=== PATIENT | female | born 1995 | race Caucasian/White ===

== ENCOUNTER 2019-05-11 01:58 | Inpatient (IN) ==
[2019-05-11 02:21] LABS: URINE SOURCE VOIDED
[2019-05-11 02:25] LABS: BILIRUBIN URINE NEGATIVE (NEGATIVE); BLOOD URINE SMALL (NEGATIVE); COLOR YELLOW; GLUCOSE URINE NEGATIVE (NEGATIVE); KETONE URINE TRACE mg/dL (NEGATIVE); LEUKOCYTES URINE NEGATIVE (NEGATIVE); NITRITE URINE NEGATIVE (NEGATIVE); PROTEIN URINE NEGATIVE (NEGATIVE); SP GRAVITY URINE 1.007; TURBIDITY URINE CLEAR (CLEAR); UROBILINOGEN URINE NORMAL (NORMAL)
[2019-05-11 02:34] LABS: UR AMPHETAMINES QUAL NONE DETECTED (NONE DETECT); UR BARBITUATES QUAL NONE DETECTED (NONE DETECT); UR BENZODIAZEPIN QUAL NONE DETECTED (NONE DETECT); UR CANNABINOIDS QUAL NONE DETECTED (NONE DETECT); UR COCAINE QUAL NONE DETECTED (NONE DETECT); UR METHADONE QUAL NONE DETECTED (NONE DETECT); UR OPIATES QUAL NONE DETECTED (NONE DETECT); UR OXYCODONE QUAL NONE DETECTED (NONE DETECT); UR PCP QUAL NONE DETECTED (NONE DETECT)
[2019-05-11] MEDS ORDERED: REGLAN PO PRN (03:05)
[2019-05-11] MEDS ORDERED: PEPCID PO PRN ×2 (03:05)
[2019-05-11] MEDS ORDERED: TYLENOL PO PRN (03:05)
[2019-05-11] MEDS ORDERED: KEFZOL 2 GM/D5W 2 GM/50 ML IVPB IV PRN (03:05)
[2019-05-11] MEDS ORDERED: ZOFRAN IV PRN (03:05)
[2019-05-11] MEDS ORDERED: PEPCID IV PRN (03:05)
[2019-05-11] MEDS ORDERED: STADOL IV PRN (03:05)
[2019-05-11] MEDS ORDERED: PITOCIN 30 UNITS/NS 30 UNIT/500 ML IV.SOLN IV SCH ×2 (03:15→12:00)
[2019-05-11] MEDS ORDERED: SODIUM CHLORIDE 0.9% INJ SCH (03:15)
[2019-05-11] MEDS ORDERED: MINERAL OIL TOP PRN (03:39)
[2019-05-11] MEDS ORDERED: XYLOCAINE-MPF 1% INJ PRN ×2 (03:39→11:52)
[2019-05-11 03:41] LABS: BASO# 0.02 X1000 (0.0-0.2); BASO% 0.2 % (0.0-0.8); EOS# 0.19 X1000 (0.0-0.7); EOS% 1.9 % (0.0-10.0); HEMATOCRIT 37.2 % (37.0-47.0); HEMOGLOBIN 12.8 g/dL (12.0-16.0); IMM GRAN# 0.02 X1000 (0.0-0.04); IMM GRAN% 0.2 % (0.0-0.5); LYMPH% 27.5 % (20.5-51.1); MCH 32.8 PG (27-31); MCHC 34.4 g/dL (33-37); MCV 95.4 FL (81-99); MONO# 0.82 X1000 (0.11-0.59); MONO% 8.4 % (1.7-9.3); MPV 11.5 FL (7.4-10.4); NEUT# 6.07 X1000 (1.4-6.5); NEUT% 61.8 % (42.2-75.2); PLT 228 X1000 (130-400); RDW 12.4 % (11.5-14.5); WBC 9.82 X1000 (4.8-10.8)
[2019-05-11] MEDS: LR 1,000 ML IV SCH ×3 (03:47→09:20)
[2019-05-11] MEDS ORDERED: NAROPIN 0.2% INJ ONE (04:15)
[2019-05-11 04:28] LABS: AGAP 15; ALB/GLOB RATIO 1.4; ALBUMIN 3.5 g/dL (3.5-5.0); ALKALINE PHOSPHATASE 108 U/L (32-104); BUN 6 mg/dL (8-22); CALCIUM 9.1 mg/dL (8.8-10.2); CHLORIDE 106 mmol/L (98-107); COSMO 275; CREATININE 0.4 mg/dL (0.5-0.9); ESTIMATED GFR > 60; GLUCOSE 103 mg/dL (70-104); GOT 14 U/L (10-30); GPT 7 U/L (10-36); POTASSIUM 4.2 mmol/L (3.5-5.1); SODIUM 139 mmol/L (136-145); TCO2 18 mmol/L (25-35); TOTAL BILIRUBIN 0.15 mg/dL (0.20-1.00)
[2019-05-11] MEDS ORDERED: FENTANYL-BUPIV-NS 500 MCG-0.125% 250 ML EPIDURAL SCH (05:00)
--- NOTE | 2019-05-11 08:01 | OB/GYN PROGRESS NOTE ---
- Subjective Labor note Assumed care Labor 6cm srom no augmentation epidural in fht cat 1 efw 34oo g anticpate OB Physical Exam Vital Signs - 8 hr 05/11/19 01:50 05/11/19 02:03 05/11/19 04:11 Temperature 97.9 F 97.9 F 98.1 F Pulse Rate 119 H 114 H 94 H Respiratory Rate 19 20 18 Blood Pressure 142/86 142/92 135/79 O2 Sat by Pulse Oximetry 100 95 97 05/11/19 07:15 Temperature 98.3 F Pulse Rate 121 H Respiratory Rate 20 Blood Pressure 111/63 O2 Sat by Pulse Oximetry 97 - CONSTITUTIONAL General Appearance: appears well Active Medications Generic Name Dose Route Start Last Admin Trade Name Freq PRN Reason Stop Dose Admin Acetaminophen 650 mg 05/11/19 03:05 Tylenol PO Q4-6H PRN PRN Headache Butorphanol Tartrate 2 mg 05/11/19 03:05 Stadol IV PRN PRN Pain Famotidine 20 mg 05/11/19 03:05 Pepcid PO ONCE PRN PRN section Famotidine 40 mg 05/11/19 03:05 Pepcid PO Q12H PRN PRN GI upset or indigestion Famotidine 20 mg 05/11/19 03:05 Pepcid IV Q12H PRN PRN GI upset or indigestion Cefazolin Sodium/Dextrose 2 gm in 50 mls @ 50 mls/hr 05/11/19 03:05 Kefzol 2 Gm/D5w IV ONCE PRN PRN section Lactated Ringer's 1,000 mls @ 0 mls/hr 05/11/19 03:15 05/11/19 04:36 Lr IV 125 mls/hr .Q0M TON Administration As Directed Oxytocin/Sodium Chloride 30 unit in 500 mls @ 0 mls/hr 05/11/19 03:15 Pitocin 30 Units/Ns IV .Q0M TON As Directed Fentanyl/Bupivacaine/Sodium Chlor 250 mls @ 0 mls/hr 05/11/19 05:00 [id number]-[id number]-[id number] 500 Mcg-0.125% EPIDURAL DIRECTED TON As Directed Lidocaine HCl 30 ml 05/11/19 03:39 Xylocaine-Mpf 1% INJ ONCE PRN PRN delivery Metoclopramide HCl 10 mg 05/11/19 03:05 Reglan PO ONCE PRN PRN section Mineral Oil 30 ml 05/11/19 03:39 Mineral Oil TOP ONCE PRN PRN delivery Ondansetron HCl 4 mg 05/11/19 03:05 Zofran IV PRN PRN Nausea Sodium Chloride 5 - 10 ml 05/11/19 03:15 Sodium Chloride 0.9% INJ DIRECTED TON Laboratory Results - last 24 hr 05/11/19 05/11/19 05/11/19 02:00 02:00 02:00 WBC RBC Hgb Hct MCV MCH MCHC RDW Std Deviation Plt Count MPV Immature Gran % (Auto) Neut % (Auto) Lymph % (Auto) [place] % (Auto) Eos % (Auto) Baso % (Auto) Immature Gran # (Auto) Neut # (Auto) Lymph # (Auto) [place] # (Auto) Eos # (Auto) Baso # (Auto) Sodium Potassium Chloride Carbon Dioxide Anion Gap BUN Creatinine Estimated GFR/1.73 m2 BUN/Creatinine Ratio Glucose Calculated Osmolality Calcium Total Bilirubin AST ALT Alkaline Phosphatase Total Protein Albumin Globulin Albumin/Globulin Ratio Urine Source VOIDED Urine Color YELLOW Urine Turbidity CLEAR Urine pH 7.0 Ur Specific [place] 1.007 Urine Protein NEGATIVE Ur Glucose (Stick) NEGATIVE Ur Ketones (Stick) TRACE A Urine Blood SMALL A Urine Nitrite NEGATIVE Urine Bilirubin NEGATIVE Urobilinogen Dipstick NORMAL Urine Leukocytes NEGATIVE Membranes Rupture POSITIVE Urine Opiates Screen NONE DETECTED Ur Oxycodone Screen NONE DETECTED Ur Methadone, Qual NONE DETECTED Ur Barbiturates Screen NONE DETECTED Ur Phencyclidine Scrn NONE DETECTED Ur Amphetamines Screen NONE DETECTED U Benzodiazepines Scrn NONE DETECTED Urine Cocaine Screen NONE DETECTED U Cannabinoids Screen NONE DETECTED RPR 05/11/19 05/11/19 05/11/19 03:17 03:17 03:17 WBC 9.82 RBC 3.90 L Hgb 12.8 Hct 37.2 MCV 95.4 MCH 32.8 H MCHC 34.4 RDW Std Deviation 12.4 Plt Count 228 MPV 11.5 H Immature Gran % (Auto) 0.2 Neut % (Auto) 61.8 Lymph % (Auto) 27.5 [place] % (Auto) 8.4 Eos % (Auto) 1.9 Baso % (Auto) 0.2 Immature Gran # (Auto) 0.02 Neut # (Auto) 6.07 Lymph # (Auto) 2.70 [place] # (Auto) 0.82 H Eos # (Auto) 0.19 Baso # (Auto) 0.02 Sodium 139 Potassium 4.2 Chloride 106 Carbon Dioxide 18 L Anion Gap 15 BUN 6 L Creatinine 0.4 L Estimated GFR/1.73 m2 > 60 BUN/Creatinine Ratio 15 Glucose 103 Calculated Osmolality 275 Calcium 9.1 Total Bilirubin 0.15 L AST 14 ALT 7 L Alkaline Phosphatase 108 H Total Protein 6.0 L Albumin 3.5 Globulin 2.5 Albumin/Globulin Ratio 1.4 Urine Source Urine Color Urine Turbidity Urine pH Ur Specific [place] Urine Protein Ur Glucose (Stick) Ur Ketones (Stick) Urine Blood Urine Nitrite Urine Bilirubin Urobilinogen Dipstick Urine Leukocytes Membranes Rupture Urine Opiates Screen Ur Oxycodone Screen Ur Methadone, Qual Ur Barbiturates Screen Ur Phencyclidine Scrn Ur Amphetamines Screen U Benzodiazepines Scrn Urine Cocaine Screen U Cannabinoids Screen RPR NON-REACTIVE
[2019-05-11] MEDS ORDERED: NAROPIN 0.5% INJ ONE (08:43)
--- NOTE | 2019-05-11 10:19 | HISTORY AND PHYSICAL ---
HISTORY OF PRESENT ILLNESS: The patient is a 23-year-old white female, G 3, P 1, A 1 at 38 weeks gestation, presents with complaints of leaking of fluid that began at 12:45 a.m. at home. The patient's care is significant for gestational diabetes treated with metformin 500 mg b.i.d. Blood sugars have been well controlled with this regimen. Patient also has hypothyroidism and has been treated with Synthroid 125 mcg half a pill daily. A group B strep culture was obtained and this was negative. PAST MEDICAL HISTORY: Gestational diabetes as mentioned above, which was not present in her first . Hypothyroidism treated with Synthroid. PAST SURGICAL HISTORY: None. PAST OB HISTORY: G 3, P 1, A 1. Spontaneous vaginal delivery. Her first child was 7 pounds 6 ounces and she also had a spontaneous AB. 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 REVIEW OF SYSTEMS: She had exercise-induced asthma, but has not had any episode since high school. FAMILY HISTORY: Unknown due to adoptive status. SOCIAL HISTORY: Tobacco use: None. Alcohol use: None. MEDICATIONS: vitamins, metformin 500 mg p.o. b.i.d., and Synthroid 125 mcg half a pill daily. ALLERGIES: No known drug allergies. PHYSICAL EXAMINATION: VITAL SIGNS: Height 5 feet 1 inch, weight 169 pounds, temperature 97.9 degrees, blood pressure 142/92, pulse of 114, respirations 20. heart rate in the 140s with [id number]-[id number] variability. HEENT: Pupils equal, round, reactive to light and accommodation. Extraocular movements intact. Oropharynx clear. NECK: Supple. No thyromegaly. LUNGS: Clear to auscultation. HEART: Regular rate and rhythm. ABDOMEN: Gravid, nontender. Cervix was dilated 6 cm, 90% effaced, -1 station, and she did have positive rupture of membrane on lab evaluation. EXTREMITIES: Mild lower extremity edema with motor 5/5 and DTRs 2+ bilaterally of lower extremities. LABS: Blood sugar was obtained at the time of admission and was noted to be 103. CBC upon admission: White count was 9.8, hemoglobin 12.8, hematocrit 37.2, platelet count 228,000. ASSESSMENT AND PLAN: Intrauterine 38 weeks gestation with a spontaneous rupture of membranes. Patient in active labor and has received epidural. Anticipate vaginal delivery. cc: Louie Cook III, MD
[2019-05-11] MEDS ORDERED: PITOCIN 20 UNITS/NS 20 UNITS/1,000 ML IV.SOLN IV SCH (11:45)
[2019-05-11] MEDS ORDERED: PITOCIN 20 UNITS/NS 20 UNITS/1,000 ML IV.SOLN ONE (11:46)
[2019-05-11] MEDS ORDERED: PITOCIN IM PRN (11:52)
[2019-05-11] MEDS ORDERED: ATARAX PO PRN (11:52)
[2019-05-11] MEDS ORDERED: BOOSTRIX VACCINE IM ONE (11:52)
[2019-05-11] MEDS ORDERED: BENADRYL PO PRN (11:52)
[2019-05-11] MEDS ORDERED: AMBIEN PO PRN (11:52)
[2019-05-11] MEDS ORDERED: BENADRYL IV PRN (11:52)
[2019-05-11] MEDS ORDERED: PERI MEDS (DERMOPLAST/NUPERCAINAL/TUCKS) MISC PRN (11:52)
[2019-05-11] MEDS ORDERED: HYDROXYZINE IM PRN (11:52)
[2019-05-11] MEDS ORDERED: M-M-R II VACCINE SUBQ ONE (11:52)
[2019-05-11] MEDS ORDERED: MOTRIN PO PRN (11:52)
[2019-05-11] MEDS ORDERED: CYTOTEC PO PRN (11:52)
[2019-05-11] MEDS ORDERED: MINERAL OIL PO PRN (11:52)
--- NOTE | 2019-05-11 18:17 | OPERATIVE NOTE ---
PROCEDURE DATE: 05/11/2019 Normal spontaneous vaginal delivery done on this 23-year-old 2 para 1 now 2 who presented in active phase labor. Underwent normal labor with epidural with anesthesia. She progressed normally through 1st and 2nd stage of labor. Delivered over intact perineum a live-born female infant. was handed to the maternal abdomen. Cord was clamped x2 and cut. The placenta delivers intact with 3-vessel cord, clear. Perineum was inspected and found to be hemostatic and intact. Please see the chart for weight and Apgars. cc: Louie Cook III, MD
[2019-05-11] MEDS: PERICOLACE PO SCH (20:54)
[2019-05-12 05:07] LABS: HEMATOCRIT 33.1 % (37.0-47.0); HEMOGLOBIN 11.2 g/dL (12.0-16.0); MCH 32.5 PG (27-31); MCHC 33.8 g/dL (33-37); MCV 95.9 FL (81-99); MPV 11.3 FL (7.4-10.4); RBC 3.45 XMIL (4.2-5.4); RDW 12.3 % (11.5-14.5); WBC 10.77 X1000 (4.8-10.8)
[2019-05-12] MEDS: SYNTHROID PO SCH (07:30)
--- NOTE | 2019-05-12 07:45 | OB/GYN PROGRESS NOTE ---
- Subjective 23 yo PPD#1 s/p at 38 weeks with A2-GDM, hypothyroidism Patient seen and examined. Her pain is controlled. She notes normal lochia. She is ambulating and voiding without difficulty. She is passing flatus. She is tolerating a regular diet and denies nausea/vomiting. She is . OB Physical Exam Vital Signs - 8 hr 05/12/19 00:00 05/12/19 04:00 05/12/19 07:31 Temperature 97.4 F L 97.0 F L 96.7 F L Pulse Rate 98 H 91 H 91 H Respiratory Rate 18 18 16 Blood Pressure 127/79 122/84 129/82 O2 Sat by Pulse Oximetry 95 95 96 - CONSTITUTIONAL General Appearance: appears well, alert, no apparent distress - EYES Eyes: PERRL/EOMI - HEAD, EARS, NOSE, MOUTH & THROAT HENMT: normocephalic/atraumatic - RESPIRATORY Respiratory: lungs clear, normal breath sounds, no respiratory distress - CARDIOVASCULAR Cardiovascular: regular rate, rhythm, no murmur - GASTROINTESTINAL (ABDOMEN) Abdominal Exam: normal bowel sounds, soft, other (ATTP, fundus firm/below umbilicus) - MUSCULOSKELETAL Extremity: normal range of motion, non-tender, no calf tenderness - NEUROLOGIC Neurologic: grossly normal - PSYCHIATRIC Psych/Mental Status: normal mood/affect Active Medications Generic Name Dose Route Start Last Admin Trade Name Freq PRN Reason Stop Dose Admin Acetaminophen 650 mg 05/11/19 03:05 Tylenol PO Q4-6H PRN PRN Headache Benzocaine 1 each 05/11/19 11:52 [place] Meds (Dermoplast/Nupercainal/Tucks) MISC 3-4XDAY PRN PRN episiotomy/hemorrhoids Butorphanol Tartrate 2 mg 05/11/19 03:05 Stadol IV PRN PRN Pain Diphenhydramine HCl 25 mg 05/11/19 11:52 Benadryl PO Q4H PRN PRN Itching Famotidine 20 mg 05/11/19 03:05 Pepcid PO ONCE PRN PRN section Famotidine 40 mg 05/11/19 03:05 Pepcid PO Q12H PRN PRN GI upset or indigestion Hydroxyzine HCl 50 mg 05/11/19 11:52 Atarax PO Q3-4H PRN PRN Nausea Hydroxyzine HCl 50 mg 05/11/19 11:52 Hydroxyzine IM Q3-4H PRN PRN Nausea Fentanyl/Bupivacaine/Sodium Chlor 250 mls @ 0 mls/hr 05/11/19 05:00 05/11/19 05:00 Qxumzinl-Ruxtv-Jc 500 Mcg-0.125% EPIDURAL 14 mls/hr DIRECTED TON Administration As Directed Ibuprofen 800 mg 05/11/19 11:52 Motrin PO Q8H PRN PRN cramping Levothyroxine Sodium 62.5 microgm 05/12/19 07:00 05/12/19 07:30 Synthroid PO 62.5 microgm DAILY@0700 TON Administration Lidocaine HCl 30 ml 05/11/19 11:52 Xylocaine-Mpf 1% INJ PRN PRN Perineal repair Metoclopramide HCl 10 mg 05/11/19 03:05 Reglan PO ONCE PRN PRN section Mineral Oil 30 ml 05/11/19 11:52 Mineral Oil PO PRN PRN Perineal massage Misoprostol 800 microgm 05/11/19 11:52 Cytotec PO PRN PRN Severe bleeding Oxytocin 20 unit 05/11/19 11:52 Pitocin IM PRN PRN Severe bleeding Senna/Docusate Sodium 1 each 05/11/19 21:00 05/11/19 20:54 Pericolace PO 1 each QHS TON Administration Zolpidem Tartrate 10 mg 05/11/19 11:52 Ambien PO HS PRN PRN Sleep Laboratory Results - last 24 hr 05/12/19 04:50 WBC 10.77 RBC 3.45 L Hgb 11.2 L Hct 33.1 L MCV 95.9 MCH 32.5 H MCHC 33.8 RDW Std Deviation 12.3 Plt Count 179 MPV 11.3 H OB Assessment & Plan (1) Status post vaginal delivery Status: Acute Plan: 23 yo PPD#1 s/p at 38 weeks with A2-GDM, hypothyroidism 1. HD stable, afebrile 2. Encourage ambulation 3. 4. Routine PP care
[2019-05-12] MEDS: PERICOLACE PO SCH (20:35)
--- NOTE | 2019-05-13 07:29 | OB/GYN PROGRESS NOTE ---
- Subjective 23 yo PPD #2 s/p at 38 weeks with A2-GDM and hypothyroidism. Patient states she is feeling well this morning. No new complaints. States decreased lochia. She is ambulating and voiding urine without difficulty. States she has not had a bowel movement yet, but is passing gas without pain. Patient is tolerating a regular diet and denies nausea or vomiting. States pain is controlled and resolving on its own. She is breast-feeding. Patient states she has no plans for any contraceptive measures at this time. OB Physical Exam Vital Signs - 8 hr 05/12/19 23:32 Temperature 97.9 F Pulse Rate 90 Respiratory Rate 18 Blood Pressure 136/83 O2 Sat by Pulse Oximetry 93 L - CONSTITUTIONAL General Appearance: appears well, alert, no apparent distress - EYES Eyes: PERRL/EOMI, pink conjunctivae - HEAD, EARS, NOSE, MOUTH & THROAT HENMT: normocephalic/atraumatic, moist mucous membranes - NECK Neck: non-tender, supple - RESPIRATORY Respiratory: chest non-tender, lungs clear, normal breath sounds, no respiratory distress - CARDIOVASCULAR Cardiovascular: normal peripheral pulses, regular rate, rhythm, no edema, no gallop, no JVD, no murmur - GASTROINTESTINAL (ABDOMEN) Abdominal Exam: normal bowel sounds, soft, tenderness (Tenderness to palpation left lower quadrant. Uterine fundus firm, below umbilicus) - MUSCULOSKELETAL Back Exam: normal inspection Extremity: normal range of motion, non-tender, no pedal edema, no calf tenderness Peripheral Pulses: dorsalis-pedis (R): 2+, dorsalis-pedis (L): 2+ - SKIN Integumentary: normal color, normal turgor - NEUROLOGIC Neurologic: grossly normal - PSYCHIATRIC Psych/Mental Status: normal mood/affect, oriented x 3 Active Medications Generic Name Dose Route Start Last Admin Trade Name Freq PRN Reason Stop Dose Admin Acetaminophen 650 mg 05/11/19 03:05 Tylenol PO Q4-6H PRN PRN Headache Benzocaine 1 each 05/11/19 11:52 [place] Meds (Dermoplast/Nupercainal/Tucks) MISC 3-4XDAY PRN PRN episiotomy/hemorrhoids Butorphanol Tartrate 2 mg 05/11/19 03:05 Stadol IV PRN PRN Pain Diphenhydramine HCl 25 mg 05/11/19 11:52 Benadryl PO Q4H PRN PRN Itching Famotidine 20 mg 05/11/19 03:05 Pepcid PO ONCE PRN PRN section Famotidine 40 mg 05/11/19 03:05 Pepcid PO Q12H PRN PRN GI upset or indigestion Hydroxyzine HCl 50 mg 05/11/19 11:52 Atarax PO Q3-4H PRN PRN Nausea Hydroxyzine HCl 50 mg 05/11/19 11:52 Hydroxyzine IM Q3-4H PRN PRN Nausea Fentanyl/Bupivacaine/Sodium Chlor 250 mls @ 0 mls/hr 05/11/19 05:00 05/11/19 05:00 Whdjxnsi-Byhkx-Mo 500 Mcg-0.125% EPIDURAL 14 mls/hr DIRECTED TON Administration As Directed Ibuprofen 800 mg 05/11/19 11:52 Motrin PO Q8H PRN PRN cramping Levothyroxine Sodium 62.5 microgm 05/12/19 07:00 05/12/19 07:30 Synthroid PO 62.5 microgm DAILY@0700 TON Administration Lidocaine HCl 30 ml 05/11/19 11:52 Xylocaine-Mpf 1% INJ PRN PRN Perineal repair Metoclopramide HCl 10 mg 05/11/19 03:05 Reglan PO ONCE PRN PRN section Mineral Oil 30 ml 05/11/19 11:52 Mineral Oil PO PRN PRN Perineal massage Misoprostol 800 microgm 05/11/19 11:52 Cytotec PO PRN PRN Severe bleeding Oxytocin 20 unit 05/11/19 11:52 Pitocin IM PRN PRN Severe bleeding Senna/Docusate Sodium 1 each 05/11/19 21:00 05/12/19 20:35 Pericolace PO 1 each QHS TON Administration Zolpidem Tartrate 10 mg 05/11/19 11:52 Ambien PO HS PRN PRN Sleep Laboratory Last Values WBC 10.77 X1000 (4.8-10.8) 05/12/19 04:50 RBC 3.45 XMIL (4.2-5.4) L 05/12/19 04:50 Hgb 11.2 g/dL (12.0-16.0) L 05/12/19 04:50 Hct 33.1 % (37.0-47.0) L 05/12/19 04:50 MCV 95.9 FL (81-99) 05/12/19 04:50 MCH 32.5 PG (27-31) H 05/12/19 04:50 MCHC 33.8 g/dL (33-37) 05/12/19 04:50 RDW Std Deviation 12.3 % (11.5-14.5) 05/12/19 04:50 Plt Count 179 X1000 (130-400) 05/12/19 04:50 MPV 11.3 FL (7.4-10.4) H 05/12/19 04:50 Immature Gran % (Auto) 0.2 % (0.0-0.5) 05/11/19 03:17 Neut % (Auto) 61.8 % (42.2-75.2) 05/11/19 03:17 Lymph % (Auto) 27.5 % (20.5-51.1) 05/11/19 03:17 [place] % (Auto) 8.4 % (1.7-9.3) 05/11/19 03:17 Eos % (Auto) 1.9 % (0.0-10.0) 05/11/19 03:17 Baso % (Auto) 0.2 % (0.0-0.8) 05/11/19 03:17 Immature Gran # (Auto) 0.02 X1000 (0.0-0.04) 05/11/19 03:17 Neut # (Auto) 6.07 X1000 (1.4-6.5) 05/11/19 03:17 Lymph # (Auto) 2.70 X1000 (1.2-3.4) 05/11/19 03:17 [place] # (Auto) 0.82 X1000 (0.11-0.59) H 05/11/19 03:17 Eos # (Auto) 0.19 X1000 (0.0-0.7) 05/11/19 03:17 Baso # (Auto) 0.02 X1000 (0.0-0.2) 05/11/19 03:17 Sodium 139 mmol/L (136-145) 05/11/19 03:17 Potassium 4.2 mmol/L (3.5-5.1) 05/11/19 03:17 Chloride 106 mmol/L (98-107) 05/11/19 03:17 Carbon Dioxide 18 mmol/L (25-35) L 05/11/19 03:17 Anion Gap 15 05/11/19 03:17 BUN 6 mg/dL (8-22) L 05/11/19 03:17 Creatinine 0.4 mg/dL (0.5-0.9) L 05/11/19 03:17 Estimated GFR/1.73 m2 > 60 05/11/19 03:17 BUN/Creatinine Ratio 15 05/11/19 03:17 Glucose 103 mg/dL (70-104) 05/11/19 03:17 Calculated Osmolality 275 05/11/19 03:17 Calcium 9.1 mg/dL (8.8-10.2) 05/11/19 03:17 Total Bilirubin 0.15 mg/dL (0.20-1.00) L 05/11/19 03:17 AST 14 U/L (10-30) 05/11/19 03:17 ALT 7 U/L (10-36) L 05/11/19 03:17 Alkaline Phosphatase 108 U/L (32-104) H 05/11/19 03:17 Total Protein 6.0 g/dL (6.3-8.3) L 05/11/19 03:17 Albumin 3.5 g/dL (3.5-5.0) 05/11/19 03:17 Globulin 2.5 05/11/19 03:17 Albumin/Globulin Ratio 1.4 05/11/19 03:17 Urine Source VOIDED 05/11/19 02:00 Urine Color YELLOW 05/11/19 02:00 Urine Turbidity CLEAR (CLEAR) 05/11/19 02:00 Urine pH 7.0 05/11/19 02:00 Ur Specific [place] 1.007 05/11/19 02:00 Urine Protein NEGATIVE mg/dL (NEGATIVE) 05/11/19 02:00 Ur Glucose (Stick) NEGATIVE mg/dL (NEGATIVE) 05/11/19 02:00 Ur Ketones (Stick) TRACE mg/dL (NEGATIVE) A 05/11/19 02:00 Urine Blood SMALL (NEGATIVE) A 05/11/19 02:00 Urine Nitrite NEGATIVE (NEGATIVE) 05/11/19 02:00 Urine Bilirubin NEGATIVE (NEGATIVE) 05/11/19 02:00 Urobilinogen Dipstick NORMAL mg/dL (NORMAL) 05/11/19 02:00 Urine Leukocytes NEGATIVE (NEGATIVE) 05/11/19 02:00 Membranes Rupture POSITIVE 05/11/19 02:00 Urine Opiates Screen NONE DETECTED (NONE DETECT) 05/11/19 02:00 Ur Oxycodone Screen NONE DETECTED (NONE DETECT) 05/11/19 02:00 Ur Methadone, Qual NONE DETECTED (NONE DETECT) 05/11/19 02:00 Ur Barbiturates Screen NONE DETECTED (NONE DETECT) 05/11/19 02:00 Ur Phencyclidine Scrn NONE DETECTED (NONE DETECT) 05/11/19 02:00 Ur Amphetamines Screen NONE DETECTED (NONE DETECT) 05/11/19 02:00 U Benzodiazepines Scrn NONE DETECTED (NONE DETECT) 05/11/19 02:00 Urine Cocaine Screen NONE DETECTED (NONE DETECT) 05/11/19 02:00 U Cannabinoids Screen NONE DETECTED (NONE DETECT) 05/11/19 02:00 RPR NON-REACTIVE (NONREACTIVE) 05/11/19 03:17 OB Assessment & Plan (1) Status post vaginal delivery Status: Acute Plan: 1. Routine Post- care 2. encourage ambulation 3. 4. contraception - patient counselled and denies any contraceptive measures at this time 5. follow up in 6 weeks
[2019-05-13] MEDS: SYNTHROID PO SCH (07:41)
[2019-05-13 11:46] VITALS: BP 105/64
== END 2019-05-13 10:20 | disposition home or self-care (01) | DRG 807 ==
LOC: NBC 01:58 → LD 01:59
PROVIDERS: ADMIT Obstetrics & Gynecology; ATTEND Obstetrics & Gynecology